=== PATIENT | male | born 1965 | race Caucasian/White ===

== ENCOUNTER 2021-03-23 15:09 | Inpatient (IN) ==
[2021-03-23] MEDS ORDERED: ONDANSETRON INJ 2 MG/ML 2 ML VIAL IV STA (16:23)
[2021-03-23] MEDS ORDERED: SODIUM CHLORIDE 0.9% 1000ML 1,000 ML IV ONE (16:23)
[2021-03-23 17:09] LABS: Basophils # (auto) 0.02 K/uL (0-0.2); Basophils % (auto) 0.4 %; Eosinophils # (auto) 0.01 K/uL (0-0.5); Eosinophils % (auto) 0.2 %; Hematocrit (blood only) 43.8 % (42-52); Immature Granulocytes # (auto) 0.04 K/uL (0.00-0.02); Immature Granulocytes % (auto) 0.7 %; Lymphocytes # (auto) 0.87 K/uL (1.2-3.4); Lymphocytes % (auto) 15.6 %; Mean Corpuscular Hemoglobin 29.8 pg (25-34); Mean Corpuscular Hgb Conc 34.2 g/dL (32-36); Mean Corpuscular Volume 86.9 fL (80-100); Mean Platelet Volume 10.9 fL (7.4-10.4); Monocytes # (auto) 0.64 K/uL (0.11-0.59); Monocytes % (auto) 11.5 %; Neutrophils % (auto) 71.6 %; Platelet Count 260 K/uL (130-400); RDW Coefficient of Variation 13.3 % (11.5-14.5); RDW Standard Deviation 42.2 fL (36.4-46.3); Red Blood Count 5.04 M/uL (4.7-6.1); White Blood Count 5.58 K/uL (4.8-10.8)
--- NOTE | 2021-03-23 17:41 | Emergency Department Note ---
History of Present Illness General Chief complaint: Vomiting Stated complaint: DIARRHEA Time Seen by Provider: 03/23/21 15:18 Source: patient Mode of arrival: ambulatory Limitations: no limitations History of Present Illness Maximum Pain Intensity: 5 This patient is a 55-year-old male who presents to the emergency department for evaluation of vomiting and not feeling well for the past week. Patient states that he has had vomiting, few episodes of diarrhea and a cough. He has had some general body aches. He denies any fevers, abdominal pain or shortness of breath. Patient was tested for COVID-19 and his states that she called for results and was told that it was negative, however patient does have his results on paper which state he is positive for SARS-CoV-2. Patient was not vaccinated against COVID-19. He states he has been having difficulty keeping anything down for the past few days. Home Medications Medication Instructions Recorded Confirmed Type guaifenesin 600 mg tablet, 600 mg PO Q12H PRN 03/23/21 03/23/21 History extended release 12 hr (Mucinex) Allergies Allergy/AdvReac Type Severity Reaction Status Date / Time No Known Allergies Allergy Unverified 03/23/21 17:17 Past Med/Surg History Medical History No significant past medical history Social History Smoking Status: Never smoker Do You Dip or Chew Tobacco: No; Hx Alcohol Use: No Hx Substance Use: No Preferred Language: Latvian Communication Ability: Effective Public Defender Required: No Beliefs That Will Affect Care: None Current Living Situation: Spouse Other Information That Helps Us Care for You: No Feels Safe at Home: Yes Safety Concerns: Feels Safe At This Time Review of Systems A total of 10 systems reviewed and were otherwise negative Physical Exam Vital Signs Vital Signs - 24 hr 03/23/21 15:13 03/23/21 17:45 03/23/21 18:15 Temperature 36.8 C Temperature Source Temporal Artery Scan Pulse Rate 90 Pulse Rate from SpO2 Sensor Respiratory Rate 16 18 20 Respiratory Effort / Characteristics Non-Labored Spontaneous Respiratory Depth Normal Blood Pressure 137/70 Blood Pressure Mean 92 Pulse Oximetry 92 87 L 92 Oxygen Delivery Method Room Air Room Air Nasal Cannula Oxygen Flow Rate 3 Sepsis Recent Fever Within 48 Hours No Sepsis New/Unexplained Change in Mental Status No Sepsis Action Taken by Nursing No Action Required 03/23/21 18:52 03/23/21 18:57 03/23/21 19:00 Temperature Temperature Source Pulse Rate 75 71 Pulse Rate from SpO2 Sensor 74 71 Respiratory Rate 20 21 22 Respiratory Effort / Characteristics Respiratory Depth Blood Pressure 127/80 Blood Pressure Mean 95 Pulse Oximetry 94 94 92 Oxygen Delivery Method Oxymask Oxymask Oxymask Oxygen Flow Rate 3 3 3 Sepsis Recent Fever Within 48 Hours Sepsis New/Unexplained Change in Mental Status Sepsis Action Taken by Nursing 03/23/21 19:10 03/23/21 19:20 03/23/21 19:30 Temperature Temperature Source Pulse Rate 71 72 82 Pulse Rate from SpO2 Sensor 70 73 82 Respiratory Rate 22 22 18 Respiratory Effort / Characteristics Respiratory Depth Blood Pressure Blood Pressure Mean Pulse Oximetry 94 94 94 Oxygen Delivery Method Oxymask Oxymask Oxymask Oxygen Flow Rate 3 3 3 Sepsis Recent Fever Within 48 Hours Sepsis New/Unexplained Change in Mental Status Sepsis Action Taken by Nursing 03/23/21 19:40 03/23/21 19:50 03/23/21 20:00 Temperature Temperature Source Pulse Rate 80 78 76 Pulse Rate from SpO2 Sensor 81 77 78 Respiratory Rate 23 18 20 Respiratory Effort / Characteristics Respiratory Depth Blood Pressure Blood Pressure Mean Pulse Oximetry 93 93 94 Oxygen Delivery Method Oxymask Oxymask Oxymask Oxygen Flow Rate 3 3 3 Sepsis Recent Fever Within 48 Hours Sepsis New/Unexplained Change in Mental Status Sepsis Action Taken by Nursing 03/23/21 20:10 Temperature Temperature Source Pulse Rate 74 Pulse Rate from SpO2 Sensor 74 Respiratory Rate 23 Respiratory Effort / Characteristics Respiratory Depth Blood Pressure Blood Pressure Mean Pulse Oximetry 93 Oxygen Delivery Method Oxymask Oxygen Flow Rate 3 Sepsis Recent Fever Within 48 Hours Sepsis New/Unexplained Change in Mental Status Sepsis Action Taken by Nursing VITALS: Vitals are noted on the nurse's note and reviewed by myself. GENERAL: This is a 55-year-old male, in no acute distress, well-developed well- nourished. SKIN: The skin was without rashes. EARS: External auditory canals clear, tympanic membranes pearly collado without erythema or effusion bilaterally. EYES: Pupils equal round and reactive to light and accommodation. NOSE: Patent, turbinates without inflammation or discharge. MOUTH: Mucous membranes dry. NECK: Supple without nuchal rigidity. No lymphadenopathy. HEART: Regular rate and rhythm without murmurs gallops or rubs. LUNGS: Diminished breath sounds bilateral bases. ABDOMEN: Positive bowel sounds x 4. Soft, nontender. EXTREMITIES: No pitting edema of the lower extremities. NEURO: Patient was alert and oriented to person place and time. Course Administered Medications Enoxaparin Sodium (Enoxaparin Inj 40 Mg/0.4 Ml Syr) 40 mg SQ Q12H RANDY Stop: 04/22/21 19:59 Last Admin: 03/24/21 08:49 Dose: 40 mg Documented by: [id number] Admin: 03/23/21 20:57 Dose: 40 mg Documented by: [id number] Discontinued Medications Dexamethasone Sodium Phosphate (DexamethasonePf 10 Mg/Ml Vial) 6 mg IV NOW ONE Stop: 03/23/21 18:14 Last Admin: 03/23/21 18:57 Dose: 6 mg Documented by: [id number] Sodium Chloride (Nss 1000ml) 1,000 mls @ 999 mls/hr IV .Q1H1M ONE Stop: 03/23/21 17:23 Last Infusion: 03/23/21 18:08 Dose: 0 mls/hr Documented by: [id number] Admin: 03/23/21 16:49 Dose: 999 mls/hr Documented by: [id number] Remdesivir 200 mg/ Sodium (Chloride) 250 mls @ 125 mls/hr IV ONE STA; Protocol Stop: 03/23/21 21:40 Last Infusion: 03/23/21 22:43 Dose: 0 mls/hr Documented by: [id number] Admin: 03/23/21 20:13 Dose: 125 mls/hr Documented by: [id number] Ondansetron HCl (Ondansetron Inj 2 Mg/Ml 2 Ml Vial) 4 mg IV NOW STA Stop: 03/23/21 16:24 Last Admin: 03/23/21 16:49 Dose: 4 mg Documented by: [id number] Medical Decision Making Differential Diagnosis COVID-19, viral syndrome, otitis, pharyngitis, pneumonia, influenza, meningitis, urinary tract infection, sepsis, bacteremia, as well as other pathologies. Home Medications Current Medication List: was personally reviewed by me Laboratory Data Attestation: I reviewed the patient's lab results. Result diagrams: 03/24/21 05:27 03/24/21 05:27 Lab Results 03/23/21 03/23/2103/23/22 Range/Units 16:45 16:45 16:45 WBC 5.58 (4.8-10.8) K/uL RBC 5.04 (4.7-6.1) M/uL Hgb 15.0 (14.0-18.0) g/dL Hct 43.8 (42-52) % MCV 86.9 (80-100) fL MCH 29.8 (25-34) pg MCHC 34.2 (32-36) g/dL RDW Std Deviation 42.2 (36.4-46.3) fL RDW Coeff of Vidya 13.3 (11.5-14.5) % Plt Count 260 (130-400) K/uL MPV 10.9 H (7.4-10.4) fL Immature Gran % (Auto) 0.7 % Neut % (Auto) 71.6 % Lymph % (Auto) 15.6 % Dolores % (Auto) 11.5 % Eos % (Auto) 0.2 % Baso % (Auto) 0.4 % Neut # (Auto) 4.00 (1.4-6.5) K/uL Lymph # (Auto) 0.87 L (1.2-3.4) K/uL Dolores # (Auto) 0.64 H (0.11-0.59) K/uL Eos # (Auto) 0.01 (0-0.5) K/uL Baso # (Auto) 0.02 (0-0.2) K/uL Immature Gran # (Auto) 0.04 H (0.00-0.02) K/uL Sodium 135 L (136-145) mmol/L Potassium (3.5-5.1) mmol/L Chloride 103 (98-107) mmol/L Carbon Dioxide 23 (21-32) mmol/L Anion Gap 9 (3-11) BUN 23 (6-23) mg/dl Creatinine 0.89 (0.6-1.4) mg/dl Est Cr Clr Drug Dosing 97.9 ml/min Est GFR ( Amer) 113.1 ml/min Est GFR (Non-Af Amer) 97.6 ml/min BUN/Creatinine Ratio 25.8 H (10-20) Glucose 93 (70-99(Fasting)) mg/dl Calcium 8.3 L (8.5-10.1) mg/dl Total Bilirubin 1.0 (0.2-1.0) mg/dl AST (13-39) U/L ALT 27 (7-52) U/L Alkaline Phosphatase 82 (34-104) U/L C-Reactive Protein 10.32 H (0-0.5) mg/dl Total Protein 7.7 (6.0-8.3) gm/dl Albumin 3.7 (3.4-5.0) gm/dl Globulin 4.0 (2.5-4.0) gm/dl Albumin/Globulin Ratio 0.9 (0.9-2) 03/23/21 Range/Units 18:12 WBC (4.8-10.8) K/uL RBC (4.7-6.1) M/uL Hgb (14.0-18.0) g/dL Hct (42-52) % MCV (80-100) fL MCH (25-34) pg MCHC (32-36) g/dL RDW Std Deviation (36.4-46.3) fL RDW Coeff of Vidya (11.5-14.5) % Plt Count (130-400) K/uL MPV (7.4-10.4) fL Immature Gran % (Auto) % Neut % (Auto) % Lymph % (Auto) % Dolores % (Auto) % Eos % (Auto) % Baso % (Auto) % Neut # (Auto) (1.4-6.5) K/uL Lymph # (Auto) (1.2-3.4) K/uL Dolores # (Auto) (0.11-0.59) K/uL Eos # (Auto) (0-0.5) K/uL Baso # (Auto) (0-0.2) K/uL Immature Gran # (Auto) (0.00-0.02) K/uL Sodium (136-145) mmol/L Potassium 3.6 (3.5-5.1) mmol/L Chloride (98-107) mmol/L Carbon Dioxide (21-32) mmol/L Anion Gap (3-11) BUN (6-23) mg/dl Creatinine (0.6-1.4) mg/dl Est Cr Clr Drug Dosing ml/min Est GFR ( Amer) ml/min Est GFR (Non-Af Amer) ml/min BUN/Creatinine Ratio (10-20) Glucose (70-99(Fasting)) mg/dl Calcium (8.5-10.1) mg/dl Total Bilirubin (0.2-1.0) mg/dl AST 28 (13-39) U/L ALT (7-52) U/L Alkaline Phosphatase (34-104) U/L C-Reactive Protein (0-0.5) mg/dl Total Protein (6.0-8.3) gm/dl Albumin (3.4-5.0) gm/dl Globulin (2.5-4.0) gm/dl Albumin/Globulin Ratio (0.9-2) Imaging Data Attestation: I personally reviewed and interpreted this imaging study as follows: Radiologist's Impression: Chest X-Ray 03/23/21 16:24 SINGLE VIEW CHEST CLINICAL HISTORY: Covid. FINDINGS: An AP, portable, upright chest radiograph is compared obtained. No prior studies are available for comparison at the time of dictation. The cardiomediastinal silhouette is unremarkable. Subtle subpleural consolidation is seen throughout both lungs, left greater than right. No large pleural effusion or pneumothorax is identified. The bony thorax is grossly intact. IMPRESSION: Subtle airspace consolidation is consistent with the reported history of a viral pneumonia. Clinical correlation will be required and radiographic follow-up to resolution is recommended. ACT 112: Negative or not required by law. Electronically signed by: Mandeep Crain M.D. 03/23/2021 6:27 PM MDM Narrative Continuous radiographer cardiac catheterization: Order was placed for continuous radiographer cardiac catheterization. Patient was placed on the radiographer cardiac catheterization. Patient was noted to be in normal sinus rhythm at an initial rate of 75 bpm. The patient is a 55-year-old male who presents today complaining of generalized illness over the past 1 week. Patient was tested for COVID-19 as an outpatient and this was positive. Chest x-ray is consistent with COVID-19 infection. Labs are unremarkable. Patient monitored for a few hours here, given fluids and IV Zofran. He was found to be hypoxic, with a oxygen saturations persistently at 87 to 88% on room air. Patient was placed on oxygen via nasal cannula and admission was recommended. Patient initially hesitant but was eventually agreeable to hospital admission. He was given a dose of IV Decadron. Case was discussed with the [facility] service, who agreed to evaluate the patient for further care. Impression & Plan Pneumonia due to COVID-19 virus, Hypoxia Discharge Plan Visit Data Chief Complaint: Vomiting Stated Complaint: DIARRHEA ED Provider: Jhonatan Alex ED Midlevel Provider: Yessy Perez Discharge Problem: Pneumonia due to COVID-19 virus, Hypoxia Patient Disposition: Admitted As Inpatient Discharge Instructions Interventions: ED Discharge Assessment Last Done: 03/23/21 23:05
[2021-03-23 17:50] LABS: Albumin Globulin Ratio 0.9 (0.9-2); Albumin Level 3.7 gm/dl (3.4-5.0); BUN Creatinine Ratio 25.8 (10-20); Calcium 8.3 mg/dl (8.5-10.1); Creatinine Clr Calc Pharmacy 97.9 ml/min; Est GFR (African American) 113.1 ml/min; Est GFR (Non-African American) 97.6 ml/min; Total Protein 7.7 gm/dl (6.0-8.3)
[2021-03-23] MEDS ORDERED: dexAMETHasone**PF** 10 MG/ML VIAL IV ONE (18:13)
--- NOTE | 2021-03-23 18:28 | XRay Report ---
SINGLE VIEW CHEST CLINICAL HISTORY: Covid. FINDINGS: An AP, portable, upright chest radiograph is compared obtained. No prior studies are availa ble for comparison at the time of dictation. The cardiomediastinal silhouette is unremarkable. Subtl e subpleural consolidation is seen throughout both lungs, left greater than right. No large pleural e ffusion or pneumothorax is identified. The bony thorax is grossly intact. IMPRESSION: Subtle airspace consolidation is consistent with the reported history of a viral pneumoni a. Clinical correlation will be required and radiographic follow-up to resolution is recommended. ACT 112: Negative or not required by law. Electronically signed by: Mandeep Crain M.D. 03/23/2021 6:27 PM
[2021-03-23 18:41] LABS: Potassium 3.6 mmol/L (3.5-5.1)
[2021-03-23] MEDS ORDERED: guaiFENesin 600 MG TABCR PO PRN (19:38)
[2021-03-23] MEDS ORDERED: REMDESIVIR 200 MG in SODIUM CHLORIDE 0.9% 210 ML IV STA (19:41)
--- NOTE | 2021-03-23 19:46 | History & Physical Report ---
Date of Service March 23, 2021 Assessment & Plan (1) Pneumonia due to COVID-19 virus: Plan: 55 yo male. Unvaccinated. Date of first symptom: 03/16/[address] on isolation precaution. Patient is saturating well on 3 liters oxymask. recommend proning Place on remdesevir, decadron. will place on lovenox for DVT prophylaxis. Patient is agreeable to take above medications after discussing risk/benefits and he showed understanding. History of Present Illness Chief Complaint: SOB Primary Care Provider: DEMARIO Martínez This is a pleasant 55 yo male who is unvaccinated for COVID-19. He presents to the hospital with a 7 day history of generalized maliase, fatigue, non productive cough, nausea, vomiting. Patient reports that he brook having SOB which prompted him to seek medical attention. Once in the ER, patient did not want to be amitted as he felt better with oxygen. But after discussing with ER provider, and inability to set up oxygen as quickly. Patient decided to stay in the hospital. Patient does not have any significant PMH. Allergies Allergy/AdvReac Type Severity Reaction Status Date / Time No Known Allergies Allergy Unverified 03/23/21 17:17 Home Medications Medication Instructions Recorded Confirmed Type guaifenesin 600 mg tablet, 600 mg PO Q12H PRN 03/23/21 03/23/21 History extended release 12 hr (Mucinex) Past Med/Surg History Medical History No significant past medical history Social History Smoking Status: Never smoker Preferred Language: Djiboutian Feels Safe at Home: Yes Review of Systems Constitutional: + chills and + fatigue Eyes: no blind spots, no diplopia and no dry eyes Ear, Nose, Mouth, Throat: no ear pain and no ear trauma Respiratory: + cough and + dyspnea Cardiovascular: no chest pain Gastrointestinal: no abdominal pain and no early satiety Musculoskeletal: no back pain and no radicular pain Integumentary: no acne and no lesions Neurologic: no gait abnormality Psychiatric: no behavioral changes and no anhedonia Endocrine: no fatigue and no polyphagia Hematologic / Lymphatic: no easy bleeding Allergy / Immunological: no lip swelling Physical Exam Constitutional: WD/WN, vitals as above (comfortable on oxymask) Eyes: PERRL, conjunctivae normal, anicteric sclerae ENMT: external ear and nose normal, oropharynx normal Neck: trachea midline, no thyromegaly Respiratory: normal respiratory effort, lungs clear to auscultation (except for bibasilar rales) Cardiovascular: RRR, no murmur, no edema Musculoskeletal: no cyanosis or clubbing, extremities motor strength 5/5 Skin: no rashes, warm and dry Neurologic: PERRL, EOMI, accommodation nl, no face palsy, no dysarthria Psychiatric: A+Ox3, euthymic affect Lymphatic: no cervical or axillary lymphadenopathy Results & Data Results & Data ([facility]) Vital Signs (Past 12 Hours) Vital Signs Temp Pulse Resp BP Pulse Ox 03/23/21 19:20 72 22 94 03/23/21 19:10 71 22 94 03/23/21 19:00 71 22 92 03/23/21 18:57 75 21 127/80 94 03/23/21 18:52 20 94 03/23/21 18:15 20 92 03/23/21 17:45 18 87 L 03/23/21 15:13 36.8 C 90 16 137/70 92 PG Care Time/CCT Total # of Minutes Spent Total Time Spent with Patient: Total time spent is greater than 50% in coordination of care (as documented) at patient's floor/unit and/or counseling patient: Coding Level of Care Code 38962 Initial Inpt Care Lvl 3 Diagnoses Pneumonia due to COVID-19 virus U07.1; J12.82
[2021-03-23] MEDS: ENOXAPARIN INJ 40 MG/0.4 ML SYR SQ SCH (20:57)
[2021-03-24 05:42] LABS: Hematocrit (blood only) 45.1 % (42-52); Hemoglobin 14.7 g/dL (14.0-18.0); Mean Corpuscular Hgb Conc 32.6 g/dL (32-36); Mean Platelet Volume 10.7 fL (7.4-10.4); Platelet Count 297 K/uL (130-400); RDW Coefficient of Variation 13.6 % (11.5-14.5); RDW Standard Deviation 44.6 fL (36.4-46.3); Red Blood Count 5.07 M/uL (4.7-6.1); White Blood Count 3.37 K/uL (4.8-10.8)
[2021-03-24 06:06] LABS: Albumin Level 3.6 gm/dl (3.4-5.0); BUN Creatinine Ratio 28.4 (10-20); Bilirubin Direct 0.5 mg/dl (0-0.2); Calcium 8.6 mg/dl (8.5-10.1); Chol HDL Ratio 4.1 (0-5); Creatinine Clr Calc Pharmacy 117.7 ml/min; Est GFR (African American) 122.1 ml/min; Est GFR (Non-African American) 105.3 ml/min; Potassium 4.2 mmol/L (3.5-5.1); Total Protein 7.5 gm/dl (6.0-8.3)
[2021-03-24] MEDS: ENOXAPARIN INJ 40 MG/0.4 ML SYR SQ SCH (08:49)
--- NOTE | 2021-03-24 16:23 | Hospitalist Progress Note ---
Date of Service March 24, 2021 Assessment & Plan (1) Pneumonia due to COVID-19 virus: Plan: Patient is an unvaccinated male. Presents to the hospital worsening shortness of breath. Found to have COVID-19. X-ray showed evidence of infiltrates. Started on remdesivir and Decadron. Monitor inflammatory markers (2) Hypoxia: Plan: Due to COVID-19 pneumonia Currently saturating on 3 L of oxygen through nasal cannula Wean as tolerated Admission and Anticipated Discharge Date Admission Date: March 23, 2021 Subjective Patient seen and examined today, states that shortness of breath is much improved Review of Systems Review of Systems: All systems reviewed are negative, apart from the ones contained in the history. Physical Exam Physical Exam: The patient is awake, alert and oriented 3, well developed and well nourished, normocephalic and atraumatic, lying in bed and in no acute dist ress. HEENT--PERRL, EOMI, mucous membranes and oropharynx mildly dry Neck--supple. No JVD. No bruits. Thyroid normal, trachea midline, no adenopathy. Heart--normal S1 and S2. No murmurs, rubs or gallops. Lungs--reduced air entry on auscultation Abdomen--normal bowel sounds and soft. Mild epigastric and left sided abdominal pain Extremities--no cyanosis or clubbing. No edema. Dermatologic--normal skin turgor, normal color, no abnormal lymph nodes, no rash. Neurologic--cranial nerves II through XII grossly intact. Rheumatologic--normal range of motion. Psychiatric--normal affect. Results & Data Results & Data ([facility]) Vital Signs (Past 12 Hours) Vital Signs Temp Pulse Resp BP Pulse Ox 03/24/21 13:00 98.1 F 82 20 110/68 94 03/24/21 12:59 87 L 03/24/21 09:09 98.1 F 03/24/21 07:04 73 22 123/79 93 PG Care Time/CCT Total # of Minutes Spent Total Time Spent with Patient: Total time spent is greater than 50% in coordination of care (as documented) at patient's floor/unit and/or counseling patient: Coding Level of Care Code 15490 Subseq Hosp Care Lvl 2 Diagnoses Pneumonia due to COVID-19 virus U07.1; J12.82 Hypoxia R09.02 Time Spent (min) 35
[2021-03-24] MEDS: REMDESIVIR 100 MG in SODIUM CHLORIDE 0.9% 230 ML IV SCH (20:30)
[2021-03-24] MEDS: dexAMETHasone 6 MG in SYRINGE 0 ML IV SCH (20:30)
[2021-03-25] MEDS: ENOXAPARIN INJ 40 MG/0.4 ML SYR SQ SCH ×3 (01:40→20:58)
[2021-03-25 06:42] LABS: Hematocrit (blood only) 44.1 % (42-52); Hemoglobin 14.6 g/dL (14.0-18.0); Mean Corpuscular Hemoglobin 29.3 pg (25-34); Mean Corpuscular Hgb Conc 33.1 g/dL (32-36); Mean Corpuscular Volume 88.6 fL (80-100); Mean Platelet Volume 10.9 fL (7.4-10.4); Platelet Count 303 K/uL (130-400); RDW Coefficient of Variation 13.6 % (11.5-14.5); RDW Standard Deviation 44.3 fL (36.4-46.3); Red Blood Count 4.98 M/uL (4.7-6.1); White Blood Count 4.41 K/uL (4.8-10.8)
[2021-03-25 07:17] LABS: BUN Creatinine Ratio 37.1 (10-20); Calcium 8.5 mg/dl (8.5-10.1); Creatinine Clr Calc Pharmacy 139.4 ml/min; Est GFR (African American) 131.3 ml/min; Est GFR (Non-African American) 113.3 ml/min; Potassium 4.3 mmol/L (3.5-5.1)
[2021-03-25] MEDS: guaiFENesin 600 MG TABCR PO SCH ×2 (07:24→20:57)
[2021-03-25 07:26] LABS: Ferritin 641.8 ng/ml (8-388)
[2021-03-25 07:43] LABS: Estimated Average Glucose 126 mg/dl
--- NOTE | 2021-03-25 13:32 | Hospitalist Progress Note ---
Date of Service March 25, 2021 Assessment & Plan (1) Pneumonia due to COVID-19 virus: Plan: Patient is an unvaccinated male. Presents to the hospital worsening shortness of breath. Found to have COVID-19. X-ray showed evidence of infiltrates. Started on remdesivir and Decadron. Today is day 3 Ferritin is elevated continue to Monitor inflammatory markers (2) Hypoxia: Plan: Due to COVID-19 pneumonia Currently saturating on 2 L of oxygen through nasal cannula Wean as tolerated Admission and Anticipated Discharge Date Admission Date: March 23, 2021 Subjective Patient seen and examined today, states that shortness of breath is much improved Review of Systems Review of Systems: All systems reviewed are negative, apart from the ones contained in the history. Physical Exam Physical Exam: The patient is awake, alert and oriented 3, well developed and well nourished, normocephalic and atraumatic, lying in bed and in no acute distress. HEENT--PERRL, EOMI, mucous membranes and oropharynx mildly dry Neck--supple. No JVD. No bruits. Thyroid normal, trachea midline, no adenopathy. Heart--normal S1 and S2. No murmurs, rubs or gallops. Lungs--reduced air entry on auscultation Abdomen--normal bowel sounds and soft. Mild epigastric and left sided abdominal pain Extremities--no cyanosis or clubbing. No edema. Dermatologic--normal skin turgor, normal color, no abnormal lymph nodes, no rash. Neurologic--cranial nerves II through XII grossly intact. Rheumatologic--normal range of motion. Psychiatric--normal affect. Results & Data Results & Data ([facility]) Vital Signs (Past 12 Hours) Vital Signs Temp Pulse Resp BP Pulse Ox 03/25/21 06:08 97.9 F 73 20 121/76 92 PG Care Time/CCT Total # of Minutes Spent Total Time Spent with Patient: Total time spent is greater than 50% in coordination of care (as documented) at patient's floor/unit and/or counseling patient: Coding Level of Care Code 76176 Subseq Hosp Care Lvl 2 Diagnoses Pneumonia due to COVID-19 virus U07.1; J12.82 Hypoxia R09.02 Time Spent (min) 35
[2021-03-25] MEDS: dexAMETHasone 6 MG in SYRINGE 0 ML IV SCH (18:42)
[2021-03-25] MEDS: REMDESIVIR 100 MG in SODIUM CHLORIDE 0.9% 230 ML IV SCH (20:57)
[2021-03-26 07:02] LABS: C Reactive Protein 4.62 mg/dl (0-0.5)
[2021-03-26 07:13] LABS: Ferritin 621.1 ng/ml (8-388)
[2021-03-26] MEDS: ENOXAPARIN INJ 40 MG/0.4 ML SYR SQ SCH ×2 (09:25→20:43)
[2021-03-26] MEDS: guaiFENesin 600 MG TABCR PO SCH ×2 (09:25→20:45)
--- NOTE | 2021-03-26 14:55 | Hospitalist Progress Note ---
Date of Service March 26, 2021 Assessment & Plan (1) Pneumonia due to COVID-19 virus: Plan: Patient is an unvaccinated male. Presented to the hospital with worsening shortness of breath. Found to have COVID-19. X-ray showed evidence of infiltrates. Started on remdesivir and Decadron. Today is day 4 Ferritin is elevated continue to Monitor inflammatory markers (2) Hypoxia: Plan: Due to COVID-19 pneumonia Currently saturating on 2 L of oxygen through nasal cannula Wean as tolerated Plan: discharge in the next 24 hrs Admission and Anticipated Discharge Date Admission Date: March 23, 2021 Subjective Patient seen and examined today, states that shortness of breath is much improved, looking foward to early discharge Review of Systems Review of Systems: All systems reviewed are negative, apart from the ones contained in the history. Physical Exam Physical Exam: The patient is awake, alert and oriented 3, well developed and well nourished, normocephalic and atraumatic, lying in bed and in no acute distress. HEENT--PERRL, EOMI, mucous membranes and oropharynx mildly dry Neck--supple. No JVD. No bruits. Thyroid normal, trachea midline, no adenopathy. Heart--normal S1 and S2. No murmurs, rubs or gallops. Lungs--reduced air entry on auscultation Abdomen--normal bowel sounds and soft. Mild epigastric and left sided abdominal pain Extremities--no cyanosis or clubbing. No edema. Dermatologic--normal skin turgor, normal color, no abnormal lymph nodes, no rash. Neurologic--cranial nerves II through XII grossly intact. Rheumatologic--normal range of motion. Psychiatric--normal affect. Results & Data Results & Data ([facility]) Vital Signs (Past 12 Hours) Vital Signs Temp Pulse Resp BP Pulse Ox 03/26/21 11:00 96.8 F L 78 14 99/60 L 92 03/26/21 07:20 98.4 F 71 19 114/73 93 PG Care Time/CCT Total # of Minutes Spent Total Time Spent with Patient: Total time spent is greater than 50% in coordination of care (as documented) at patient's floor/unit and/or counseling patient: Coding Level of Care Code 42922 Subseq Hosp Care Lvl 2 Diagnoses Pneumonia due to COVID-19 virus U07.1; J12.82 Hypoxia R09.02 Time Spent (min) 35
[2021-03-26] MEDS: dexAMETHasone 6 MG in SYRINGE 0 ML IV SCH (18:29)
[2021-03-26] MEDS: REMDESIVIR 100 MG in SODIUM CHLORIDE 0.9% 230 ML IV SCH (20:34)
[2021-03-27] MEDS: guaiFENesin 600 MG TABCR PO SCH ×2 (09:18→20:37)
[2021-03-27] MEDS: ENOXAPARIN INJ 40 MG/0.4 ML SYR SQ SCH ×2 (09:18→19:50)
--- NOTE | 2021-03-27 13:30 | Hospitalist Progress Note ---
Date of Service March 27, 2021 Assessment & Plan (1) Pneumonia due to COVID-19 virus: Plan: Patient is an unvaccinated male. Presented to the hospital with worsening shortness of breath. Found to have COVID-19. X-ray showed evidence of infiltrates. Started on remdesivir and Decadron. Today is day 4 Ferritin is elevated continue to Monitor inflammatory markers (2) Hypoxia: Plan: Due to COVID-19 pneumonia Currently saturating on 2 L of oxygen through nasal cannula Wean as tolerated Plan: discharge in the next 24 hrs Admission and Anticipated Discharge Date Admission Date: March 23, 2021 Subjective Patient seen and examined today, states that shortness of breath is much improved, sitting up in the chair Review of Systems Review of Systems: All systems reviewed are negative, apart from the ones contained in the history. Physical Exam Physical Exam: The patient is awake, alert and oriented 3, well developed and well nourished, normocephalic and atraumatic, lying in bed and in no acute distress. HEENT--PERRL, EOMI, mucous membranes and oropharynx mildly dry Neck--supple. No JVD. No bruits. Thyroid normal, trachea midline, no adenopathy. Heart--normal S1 and S2. No murmurs, rubs or gallops. Lungs--reduced air entry on auscultation Abdomen--normal bowel sounds and soft. Mild epigastric and left sided abdominal pain Extremities--no cyanosis or clubbing. No edema. Dermatologic--normal skin turgor, normal color, no abnormal lymph nodes, no rash. Neurologic--cranial nerves II through XII grossly intact. Rheumatologic--normal range of motion. Psychiatric--normal affect. Results & Data Results & Data ([facility]) Vital Signs (Past 12 Hours) Vital Signs Temp Pulse Resp BP Pulse Ox 03/27/21 07:43 97.5 F L 66 20 120/71 95 PG Care Time/CCT Total # of Minutes Spent Total Time Spent with Patient: Total time spent is greater than 50% in coordination of care (as documented) at patient's floor/unit and/or counseling patient: Coding Level of Care Code 21892 Subseq Hosp Care Lvl 2 Diagnoses Pneumonia due to COVID-19 virus U07.1; J12.82 Hypoxia R09.02 Time Spent (min) 35
[2021-03-27] MEDS: dexAMETHasone 6 MG in SYRINGE 0 ML IV SCH (17:45)
[2021-03-27] MEDS: REMDESIVIR 100 MG in SODIUM CHLORIDE 0.9% 230 ML IV SCH (19:45)
[2021-03-28] MEDS: guaiFENesin 600 MG TABCR PO SCH (08:12)
[2021-03-28] MEDS: ENOXAPARIN INJ 40 MG/0.4 ML SYR SQ SCH (08:12)
--- NOTE | 2021-03-28 14:32 | Discharge Summary ---
Date of Service March 28, 2021 Admission HPI Per Admitting Provider This is a pleasant 55 yo male who is unvaccinated for COVID-19. He presents to the hospital with a 7 day history of generalized maliase, fatigue, non productive cough, nausea, vomiting. Patient reports that he brook having SOB which prompted him to seek medical attention. Once in the ER, patient did not want to be amitted as he felt better with oxygen. But after discussing with ER provider, and inability to set up oxygen as quickly. Patient decided to stay in the hospital. Patient does not have any significant PMH. Principal Diagnosis COVID 19 PNA Discharge Exam The patient is awake, alert and oriented 3, well developed and well nourished, normocephalic and atraumatic, lying in bed and in no acute distress. HEENT--PERRL, EOMI, mucous membranes and oropharynx mildly dry Neck--supple. No JVD. No bruits. Thyroid normal, trachea midline, no adenopathy. Heart--normal S1 and S2. No murmurs, rubs or gallops. Lungs--reduced air entry on auscultation Abdomen--normal bowel sounds and soft. Mild epigastric and left sided abdominal pain Extremities--no cyanosis or clubbing. No edema. Dermatologic--normal skin turgor, normal color, no abnormal lymph nodes, no rash. Neurologic--cranial nerves II through XII grossly intact. Rheumatologic--normal range of motion. Psychiatric--normal affect. Discharge Data Allergies Allergy/AdvReac Type Severity Reaction Status Date / Time No Known Allergies Allergy Unverified 03/23/21 17:17 Consultations 03/23/21 18:17 ED Decision to Admit Stat Hospital Course (1) Pneumonia due to COVID-19 virus: Patient is an unvaccinated male. Presented to the hospital with worsening shortness of breath. Found to have COVID-19. X-ray showed evidence of infiltrates. Started on remdesivir and Decadron. Today is day 5 Clinically much improved (2) Hypoxia: 2 step eval showed he was saturating well on room air discharge home on PO Decadron for 6 more days Total Time Total Time Spent Total Time Spent (In Minutes): 35 Discharge Plan Discharge Items Patient Disposition: Home - Self-Care Reason For Visit: COVID 19 PNEUMONIA Discharge Diagnosis: COVID 19 PNA Condition on Discharge: Good Activity: Resume your previous activity Non-emergency contact: Primary Care Provider Call non-emergency contact if: you have any medication questions Follow-up/Referrals: Bekah Nicholson CRNP [Primary Care Provider] - Diet: Regular Addtl Attending Provider Instructions: please make appointment to follow up with your PCP Pending Studies at Discharge: No Stand-Alone Forms: My [employer], Smoking Cessation Medications and DC Order Prescriptions: New dexamethasone 6 mg tablet 6 mg PO DAILY Qty: 6 RF: 0 Continued guaifenesin [Mucinex] 600 mg Tablet Extended Release 12hr 600 mg PO Q12H PRN (Reason: Congestion) RF: 0 Discharge Orders: Discharge Order (Routine); Ordered 03/28/21 Ordered By: Sergey Bernardo/Other Patient Handouts: A1C, 5 Steps for Eating Healthier Admission Data Admit Date/Time: 03/23/21 20:19 Attending Provider: Sergey Gusman Admit Provider: Jasper Mitchell Primary Care Provider: Bekah Nicholson Other Providers: Jasper Mitchell Coding Level of Care Code D/C DAY MANAGEMENT >30 MINS Diagnoses Pneumonia due to COVID-19 virus U07.1; J12.82 Hypoxia R09.02 Time Spent (min) 35
== END 2021-03-28 15:20 | disposition home or self-care (01) | DRG 177 ==
LOC: ED 15:09 → EDINP 20:19 → SUATTDRO 20:19 → 2W 23:05